=== PATIENT | female | born 1945 | race Caucasian/White ===

== ENCOUNTER → 2016-08-25 | Outpatient (CLI) | payer MEDICARE ==
[2016-08-25 14:47] LABS: CH 30.7; CHCM 32.9; HCT 45.6 % (34.0-46.0); HDW 2.63; HGB 14.8 gm/dL (11.4-16.0); MCH 30.4 pg (25.0-35.0); MCHC 32.5 g/dL (31.0-37.0); MCV 93.7 fL (80.0-100.0); Mean Platelet Volume 7.1; RBC 4.87 m/uL (3.80-5.40); WBC 7.4 k/uL (3.8-10.6)
[2016-08-25 15:11] LABS: Cholesterol 155 mg/dL (<200); HDL Cholesterol 43 mg/dL (40-60); Triglycerides 184 mg/dL (<150)
== END ==
LOC: LABWHC1 14:09
PROVIDERS: ATTEND Nuclear Medicine Nuclear Cardiology
DX: I25.10 Atherosclerotic heart disease of native coronary artery without angina pectoris (principal); I10 Essential (primary) hypertension; E78.2 Mixed hyperlipidemia
CPT/HCPCS: 36415; 80061; 85027

== ENCOUNTER → 2016-11-06 | Outpatient (CLI) | payer MEDICARE ==
[2016-11-06 17:55] LABS: INR 1.1 (<1.2); Partial Thromboplastin Time 23.9 sec (22.0-30.0); Prothrombin Time 11.1 sec (9.0-12.0)
[2016-11-06 18:01] LABS: ALT 34 U/L (9-52); AST 32 U/L (14-36); Alkaline Phosphatase 76 U/L (38-126); Anion Gap 12 mmol/L; Blood Urea Nitrogen 23 mg/dL (7-17); Calcium 10.3 mg/dL (8.4-10.2); Carbon Dioxide 23 mmol/L (22-30); Chloride 102 mmol/L (98-107); Glucose 107 mg/dL (74-99); Non-African American GFR(MDRD) >60 (>60 ml/min/1.73 sqM); Potassium 4.6 mmol/L (3.5-5.1); Sodium 137 mmol/L (137-145); Total Bilirubin 0.9 mg/dL (0.2-1.3); Total Protein 7.8 g/dL (6.3-8.2)
== END | disposition home or self-care (01) ==
LOC: LABWHC1 17:18
PROVIDERS: ATTEND Nuclear Medicine Nuclear Cardiology
DX: Z01.810 Encounter for preprocedural cardiovascular examination (principal); I25.10 Atherosclerotic heart disease of native coronary artery without angina pectoris; R94.39 Abnormal result of other cardiovascular function study
CPT/HCPCS: 36415; 80053; 85610; 85730